=== PATIENT | female | born 2000 | race Caucasian/White ===

== ENCOUNTER 2021-10-22 20:20 | Emergency (ER) | payer OTHER, MEDICAID ==
[2021-10-22] MEDS ORDERED: Amoxicillin/Clavulanate K 875-125 MG Tab PO STA (20:49)
== END 2021-10-22 21:10 | disposition home or self-care (01) ==
LOC: FB.ED 20:20
DX: S61.451A Open bite of right hand, initial encounter (principal); Y04.1XXA Assault by human bite, initial encounter; Y92.009 Unspecified place in unspecified non-institutional (private) residence as the place of occurrence of the external cause
CPT/HCPCS: 12001; 99281; 99282; A9270

== ENCOUNTER 2021-11-21 14:55 | Emergency (ER) | payer OTHER, MEDICAID ==
[2021-11-21] MEDS ORDERED: Diazepam 2 MG Tab PO ONE (15:33)
== END 2021-11-21 16:50 | disposition home or self-care (01) ==
LOC: FB.ED 14:55
DX: S09.93XA Unspecified injury of face, initial encounter (principal); F84.0 Autistic disorder; Q04.3 Other reduction deformities of brain; E78.00 Pure hypercholesterolemia, unspecified; Z88.0 Allergy status to penicillin; Z91.010 Allergy to peanuts; Z91.018 Allergy to other foods; Z79.899 Other long term (current) drug therapy; W22.09XA Striking against other stationary object, initial encounter
CPT/HCPCS: 99283; 99284; A9270-GY

== ENCOUNTER 2022-05-22 16:57 | Emergency (ER) | payer OTHER, MEDICAID | END 2022-05-22 18:37 | disposition home or self-care (01) | LOC: FB.ED 16:57 | DX: S00.03XA Contusion of scalp, initial encounter (principal); F41.9 Anxiety disorder, unspecified; F31.10 Bipolar disorder, current episode manic without psychotic features, unspecified; E78.00 Pure hypercholesterolemia, unspecified; Z79.899 Other long term (current) drug therapy; Z91.010 Allergy to peanuts; Z91.018 Allergy to other foods; Z88.0 Allergy status to penicillin; W19.XXXA Unspecified fall, initial encounter | CPT/HCPCS: 70450; 99283 ==

== ENCOUNTER 2022-07-02 13:54 | Observation (INO) | payer OTHER, MEDICAID ==
[2022-07-02 14:30] LABS: ESTIMATED GFR 93 mL/min (>60)
[2022-07-02] MEDS ORDERED: Ondansetron 4 MG Tab.DIS PO ONE (14:53)
[2022-07-02] MEDS ORDERED: Ondansetron 4 MG/2 ML SDV IVPUSH ONE (15:30)
[2022-07-02] MEDS ORDERED: Sodium Chloride 0.9% 10 ML Syringe FLUSH PRN (15:31)
[2022-07-02] MEDS ORDERED: HYDROmorphone 2 MG/ML SDV IM ONE (15:53)
[2022-07-02] MEDS ORDERED: Promethazine 25 MG/ML SDV IM ONE ×2 (15:53→23:14)
[2022-07-02] MEDS ORDERED: Bisacodyl 10 MG Supp RECTAL ONE (16:53)
[2022-07-02] MEDS ORDERED: Glycerin Adult 2 GM Supp RECTAL ONE (16:57)
[2022-07-02] MEDS: Lactated Ringers 1,000 ML IV SCH (18:32)
[2022-07-02] MEDS ORDERED: Polyethylene Glycol 3350 Powder 17 GM Packet PO ONE (19:17)
[2022-07-02] MEDS ORDERED: Acetaminophen 650 MG Supp RECTAL PRN (19:24)
[2022-07-02] MEDS ORDERED: Ondansetron 4 MG/2 ML SDV IVPUSH PRN (19:42)
[2022-07-02] MEDS ORDERED: DIAZEPAM 5 MG/ML IJ PRN (20:09)
[2022-07-02] MEDS ORDERED: Magnesium Hydroxide 400 MG/5 ML Susp 473 ML Bottle PO PRN (20:09)
[2022-07-02] MEDS ORDERED: LORazepam 1 MG Tab PO PRN (20:09)
[2022-07-02] MEDS ORDERED: traZODone 100 MG Tab PO SCH (21:00)
[2022-07-02] MEDS ORDERED: Escitalopram 20 MG Tab PO SCH (21:00)
[2022-07-02] MEDS: lamoTRIgine 100 MG Tab PO SCH (22:20)
[2022-07-02] MEDS: OXcarbazepine 300 MG Tab PO SCH (22:21)
[2022-07-02] MEDS ORDERED: Sodium Phosphate,Monobasic/Sodium Phosphate,Dibasic Enema 133 ML Bottle RECTAL ONE (22:48)
[2022-07-03] MEDS: Lactated Ringers 1,000 ML IV SCH (02:00)
[2022-07-03] MEDS ORDERED: Diatrizoate Meglumine/Diatrizoate Sodium 37% 30 ML Bottle PO ONE (06:00)
[2022-07-03 06:33] LABS: ESTIMATED GFR 107 mL/min (>60)
[2022-07-03] MEDS ORDERED: Levothyroxine 88 MCG Tab PO SCH (07:30)
[2022-07-03] MEDS ORDERED: Iopamidol 755 Mg/ML 75 ML Bottle IV ONE (07:30)
[2022-07-03] MEDS ORDERED: LEVOCARNITINE 330 MG PO SCH (08:00)
[2022-07-03] MEDS ORDERED: Polyethylene Glycol 3350 Powder 17 GM Packet PO SCH (09:00)
[2022-07-03] MEDS ORDERED: Lithium Carbonate 300 MG Cap PO SCH ×2 (09:00→18:00)
[2022-07-03] MEDS ORDERED: Potassium Chloride 20 MEQ Tab.ER PO SCH (09:45)
[2022-07-03] MEDS: OXcarbazepine 300 MG Tab PO SCH (10:07)
[2022-07-03] MEDS: lamoTRIgine 100 MG Tab PO SCH (10:07)
== END 2022-07-03 13:45 ==
LOC: FB.ED 13:54 → FB.MS 19:24
PROVIDERS: ADMIT Emergency Medicine; ATTEND Family Medicine
DX: R53.83 Other fatigue (principal); I95.9 Hypotension, unspecified; R56.9 Unspecified convulsions; R93.5 Abnormal findings on diagnostic imaging of other abdominal regions, including retroperitoneum; D72.829 Elevated white blood cell count, unspecified; K59.01 Slow transit constipation; F84.0 Autistic disorder; E87.6 Hypokalemia; K80.20 Calculus of gallbladder without cholecystitis without obstruction; E78.00 Pure hypercholesterolemia, unspecified; F31.9 Bipolar disorder, unspecified; E03.9 Hypothyroidism, unspecified; J98.11 Atelectasis; Z79.899 Other long term (current) drug therapy; Z98.890 Other specified postprocedural states; Z88.0 Allergy status to penicillin; Z91.010 Allergy to peanuts; Z79.890 Hormone replacement therapy
CPT/HCPCS: 36415; 71046; 74177; 80048; 80053; 80178; 81001; 81025; 83605; 84443; 85025; 85027; 86140; 96360; 96361; 96372; 99285; A9270; G0378; J1170; J2550; J7120; Q0162; Q9963; Q9967; 99217; 99220

== ENCOUNTER 2022-09-04 21:15 | Emergency (ER) | payer OTHER, MEDICAID ==
[2022-09-04] MEDS ORDERED: Lidocaine 2% 20 ML MDV INFILT ONE (21:16)
[2022-09-04] MEDS ORDERED: Lidocaine/EPINEPHrine/Tetracaine Soln 5 ML Each TOP ONE (21:28)
[2022-09-04] MEDS ORDERED: Midazolam Oral Soln 10 MG/5 ML UD Cup PO ONE (22:40)
== END 2022-09-05 00:15 | disposition home or self-care (01) ==
LOC: FB.ED 21:15
DX: S61.214A Laceration without foreign body of right ring finger without damage to nail, initial encounter (principal); E78.00 Pure hypercholesterolemia, unspecified; E03.9 Hypothyroidism, unspecified; Z88.0 Allergy status to penicillin; Z91.010 Allergy to peanuts; Z91.018 Allergy to other foods; Z79.899 Other long term (current) drug therapy; W26.8XXA Contact with other sharp object(s), not elsewhere classified, initial encounter
CPT/HCPCS: 12001; 99156; 99281; 99282; A9270-GY